=== PATIENT | female | born 1960 | race Caucasian/White ===

== ENCOUNTER 2021-01-08 17:00 | Emergency (ER) | payer SELFPAY ==
[~2021-01-08] VITALS: Ht 177.8 cm; Wt 83.9 kg
[~2021-01-08 17:00] MED LIST: ALBUTEROL0.09 MG/A2 IH; AMOXICILLIN500 MG PO; DIFLUCAN150 MG PO; ROBAXIN750 MG PO; TRAMADOL HCL50 MG PO
[2021-01-08] MEDS ORDERED: PREDNISONE20 M1 PO (19:22)
[2021-01-08] MEDS ORDERED: AUGMENTIN 875875 MG PO (19:22)
== END 2021-01-08 19:38 | disposition home or self-care (01) ==
LOC: ED 17:00
DX: J32.9 Chronic sinusitis, unspecified (principal); F17.200 Nicotine dependence, unspecified, uncomplicated; Z20.822 Contact with and (suspected) exposure to COVID-19; Z90.11 Acquired absence of right breast and nipple

== ENCOUNTER 2021-01-11 12:08 | Emergency (ER) | payer SELFPAY ==
[~2021-01-11] VITALS: Wt 81.6 kg
[~2021-01-11 12:08] MED LIST changes: +AUGMENTIN 875875 MG PO; +PREDNISONE20 M1 PO
[2021-01-11 12:38] LABS: BASO # 0.1 10*3/uL (0.0-0.1); BASO % 0.4 % (0.0-1.0); EOS # 0.1 10*3/uL (0.0-0.4); EOS % 0.4 % (1.0-4.0); HEMATOCRIT 41.1 % (37.0-47.0); LYMPH # 1.7 10*3/uL (1.3-4.4); LYMPH % 12.2 % (27.0-41.0); MEAN CELL VOLUME 91.1 fl (81.0-99.0); MEAN CORPUSCULAR HGB 29.3 pg (27.0-31.0); MEAN CORPUSCULAR HGB CONC 32.1 g/dl (33.0-37.0); MEAN PLATELET VOLUME 9.9 fl (9.6-12.3); MONO # 0.6 10*3/uL (0.1-1.0); NEUT # 11.5 10*3/uL (2.3-7.9); NEUT % 81.7 % (47.0-73.0); PLATELET COUNT AUTOMATED 368 10*3/uL (130-400); RED BLOOD COUNT 4.51 10*6/uL (4.10-5.10); RED CELL DISTRI WIDTH 14.6 % (0-14.5); WHITE BLOOD COUNT 14.1 10*3/uL (4.8-10.8)
[2021-01-11 12:53] LABS: ACT PARTIAL THROMBO TIME 27.4 SECONDS (20.0-32.1)
[2021-01-11] MEDS ORDERED: HYDR25T PO (13:01)
[2021-01-11] MEDS ORDERED: MUCINEX DM 30/61 TAB PO (13:01)
[2021-01-11] MEDS ORDERED: PROVENTIL HFA6.7 GM INH (13:01)
[2021-01-11 13:17] LABS: ALBUMIN 3.4 gm/dl (3.1-4.5); ALKALINE PHOSPHATASE 83 U/L (45-117); BUN 14 mg/dl (7-24); CHLORIDE 112 mmol/L (98-107); CPK 52 U/L (26-192); CREATININE 1.05 mg/dL (0.55-1.02); LDH 176 U/L (84-246); POTASSIUM 3.9 mmol/L (3.5-5.1); SGOT/AST 10 IU/L (3-35); SGPT/ALT 21 U/L (12-78); SODIUM 141 mmol/L (136-145); TOTAL PROTEIN 7.3 gm/dL (6.4-8.2)
[2021-01-11 13:20] LABS: TROPONIN I < 0.015 ng/ml (<0.045)
== END 2021-01-11 13:44 | disposition home or self-care (01) ==
LOC: ED 12:08
PROVIDERS: Emergency Medicine
DX: J40 Bronchitis, not specified as acute or chronic (principal); Z20.822 Contact with and (suspected) exposure to COVID-19; Z79.899 Other long term (current) drug therapy; Z90.11 Acquired absence of right breast and nipple

== ENCOUNTER 2025-02-14 16:29 | Inpatient (IN) | payer SELFPAY ==
[~2025-02-14] VITALS: Ht 175.2 cm; Wt 90.7 kg
[~2025-02-14 16:29] MED LIST changes: +HYDR25T PO; +MUCINEX DM 30/61 TAB PO; +PROVENTIL HFA6.7 GM INH
[2025-02-14 16:41] VITALS: BP 145/84
[2025-02-14] MEDS ORDERED: Albuterol Sulf/Ipratropium 3 ML VIAL NEB ONE (17:15)
[2025-02-14 17:36] LABS: BASO # 0.1 10*3/uL (0.0-0.1); BASO % 0.5 % (0.0-1.0); EOS # 0.5 10*3/uL (0.0-0.4); EOS % 5.4 % (1.0-4.0); HEMATOCRIT 47.7 % (37.0-47.0); MEAN CELL VOLUME 90.2 fl (81.0-99.0); MEAN CORPUSCULAR HGB 29.1 pg (27.0-31.0); MEAN CORPUSCULAR HGB CONC 32.3 g/dl (33.0-37.0); MEAN PLATELET VOLUME 10.2 fl (9.6-12.3); MONO # 0.9 10*3/uL (0.1-1.0); MONO % 9.6 % (3.0-9.0); NEUT # 4.7 10*3/uL (2.3-7.9); NEUT % 51.2 % (47.0-73.0); PLATELET COUNT AUTOMATED 370 10*3/uL (130-400); RED BLOOD COUNT 5.29 10*6/uL (4.10-5.10); RED CELL DISTRI WIDTH 14.1 % (0-14.5); WHITE BLOOD COUNT 9.2 10*3/uL (4.8-10.8)
[2025-02-14 17:54] LABS: POTASSIUM 4.1 mmol/L (3.4-5.1)
[2025-02-14] MEDS ORDERED: cefTRIAXone Sodium 1 GM/10 ML SYR IV ONE (18:45)
[2025-02-14] MEDS ORDERED: AZITHROMYCIN 250 ML IV ONE (18:45)
[2025-02-14] MEDS ORDERED: methylPREDNISolone sod succ 125 MG VIAL IV ONE (18:45)
[2025-02-14] MEDS ORDERED: TEMAZEPAM 15 MG CAP PO PRN (20:05)
[2025-02-14] MEDS ORDERED: Albuterol Sulf/Ipratropium 3 ML VIAL NEB SCH (20:15)
[2025-02-14] MEDS ORDERED: Pantoprazole Sodium 40 MG TAB PO SCH (20:15)
[2025-02-14] MEDS ORDERED: LORazepam 1 MG TAB PO ONE (20:20)
[2025-02-14] MEDS ORDERED: Dextromethorphan Hydrobromid 1 TAB TAB PO SCH (20:35)
[2025-02-14] MEDS ORDERED: methylPREDNISolone sod succ 40 MG VIAL IV SCH (22:00)
[2025-02-15] MEDS ORDERED: Enoxaparin Sodium 40 MG/0.4 ML SYR SC SCH (10:00)
[2025-02-15] MEDS ORDERED: AZITHROMYCIN 250 MG TAB PO SCH (16:00)
[2025-02-15] MEDS ORDERED: cefTRIAXone Sodium 1 GM in SYRINGE INFUSION 10 ML IV SCH (20:00)
== END 2025-02-14 21:30 | disposition left against medical advice (07) | DRG 202 ==
LOC: ED 16:29 → EDHOLD 18:53 → 5E 21:07
PROVIDERS: Internal Medicine; ADMIT Internal Medicine; ATTEND Internal Medicine
DX: J20.8 Acute bronchitis due to other specified organisms (principal); J44.0 Chronic obstructive pulmonary disease with (acute) lower respiratory infection; J44.1 Chronic obstructive pulmonary disease with (acute) exacerbation; Z53.29 Procedure and treatment not carried out because of patient's decision for other reasons; R73.9 Hyperglycemia, unspecified; F17.200 Nicotine dependence, unspecified, uncomplicated; Z66 Do not resuscitate; Z96.642 Presence of left artificial hip joint; Z20.822 Contact with and (suspected) exposure to COVID-19; Z90.710 Acquired absence of both cervix and uterus; Z90.11 Acquired absence of right breast and nipple; Z79.899 Other long term (current) drug therapy; Z83.3 Family history of diabetes mellitus; Z79.51 Long term (current) use of inhaled steroids; Z51.5 Encounter for palliative care